=== PATIENT | male | born 1990 | race Caucasian/White ===

== ENCOUNTER 2017-02-24 13:21 | Emergency (ER) | payer BC ==
[~2017-02-24] VITALS: Ht 180.3 cm; Wt 84.5 kg
[~2017-02-24 13:21] MED LIST: LEVAQUIN750 MG PO; ULTRAM50 MG PO; ZOFRAN4 MG PO
[2017-02-24 13:34] VITALS: BP 142/93
== END 2017-02-24 14:00 | disposition left against medical advice (07) ==
LOC: EME 13:21
DX: Z04.1 Encounter for examination and observation following transport accident (principal); R51 Headache; Z53.21 Procedure and treatment not carried out due to patient leaving prior to being seen by health care provider

== ENCOUNTER 2017-11-29 14:16 | Emergency (ER) | payer BC ==
[~2017-11-29] VITALS: Ht 177.8 cm; Wt 80.6 kg
[2017-11-29 15:30] VITALS: BP 126/90
[2017-11-29] MEDS ORDERED: MOTRIN600 MG PO (15:39)
== END 2017-11-29 16:07 | disposition home or self-care (01) ==
LOC: EME 14:16
DX: S20.211A Contusion of right front wall of thorax, initial encounter (principal); F12.90 Cannabis use, unspecified, uncomplicated; W20.8XXA Other cause of strike by thrown, projected or falling object, initial encounter; W10.9XXA Fall (on) (from) unspecified stairs and steps, initial encounter; Y93.H3 Activity, building and construction; Y99.0 Civilian activity done for income or pay
CPT/HCPCS: 71046; 99281; 99283